=== PATIENT | male | born 1970 | race Caucasian/White ===

== ENCOUNTER 2017-07-04 21:04 | Emergency (ER) | payer SELFPAY ==
[2017-07-04 21:19] VITALS: BP 182/123
--- NOTE | 2017-07-04 21:48 | ED ---
Dizziness - HPI Summary HPI Summary: 47 yo WM h/o uncontrolled HTN and hypothyroidism presents s/p fall 2 nights ago while coming down the steps of the bar, c/o FALK dizziness. Does not recall whether he fell before or after fall, drinks about 4-5 Michelob lights per day, does not know how long he may have passed out for after the fall, has and scabbed over small laceration above left brow. - History Of Current Complaint Chief Complaint: UCCardiac Stated Complaint: FALL,NAUSOUS,LIGHT HEADED Hx Obtained From: Patient Onset/Duration: Resolved Timing: Constant Severity Initially: Moderate Severity Currently: Moderate Character: Lightheaded Aggravating Factor(s): Nothing Alleviating Factor(s): Nothing Associated Signs And Symptoms: Positive: Negative, Unsteady Gait, Other: - DAILY ETOH use - Allergies/Home Medications Allergies/Adverse Reactions: Allergies Allergy/AdvReac Type Severity Reaction Status Date / Time No Known Allergies Allergy Verified 08/11/14 21:26 Home Medications: Home Medications Levothyroxine TAB* [Synthroid TAB*] 88 mcg PO 0800 07/04/17 [History Confirmed 07/04/17] PMH/Surg Hx/FS Hx/Imm Hx Previously Healthy: Yes Endocrine/Hematology History: Reports: Hx Thyroid Disease Cardiovascular History: Reports: Hx Hypertension Infectious Disease History: No Infectious Disease History: Denies: Traveled Outside the [place] in Last 30 Days - Social History Alcohol Use: Daily Alcohol Amount: 4-5 12 oz cans of beer daily Substance Use Type: Reports: None Smoking Status (MU): Former Smoker Type: Smokeless Tobacco Amount Used/How Often: 2 cans weekly Review of Systems Constitutional: Negative Eyes: Negative ENT: Negative Cardiovascular: Negative Respiratory: Negative Gastrointestinal: Negative Musculoskeletal: Negative Skin: Negative Positive: Other - laceration above left brow Neurological: Other - s/p fall Positive: Headache, Weakness, Syncope Psychological: Normal All Other Systems Reviewed And Are Negative: Yes Physical Exam Triage Information Reviewed: Yes Vital Signs On Initial Exam: Initial Vitals Temp Pulse Resp BP Pulse Ox 36.2 C 102 18 182/123 99 07/04/17 21:09 07/04/17 21:09 07/04/17 21:09 07/04/17 21:09 07/04/17 21:09 Vital Signs Reviewed: Yes Appearance: Positive: No Pain Distress, Ill-Appearing Skin: Positive: Warm, Other - old scabbed over laceration above left brow Diagnostics - Vital Signs Vital Signs Temp Pulse Resp BP Pulse Ox 07/04/17 21:09 36.2 C 102 18 182/123 99 - Laboratory Lab Statement: Any lab studies that have been ordered have been reviewed, and results considered in the medical decision making process. Dizzy Course/Dx - Course Course Of Treatment: PT IS A DAILY ETOH DRINKER S/P FALL COMING OUT OF THE BAR 2 NIGHTS AGO, COULD NOT RECALL CIRCUMSTANCES OF FALL, FELT"UNWELL" AND CALLED HIS WHO IS ACCOMPANYING HIM (DOES NOT LIVE WITH HIM) BUT CRIED TO COME GET HIM THAT HE COULD NOT DRIVE PRIOR TO COMING TO [facility]. EKG NSR @91, NO STT CHNAGES, OFFERED CT BRAIN TO R/O BLEED, ADVISED TO GO TO ED FOR COMPLETE SYNCOPE W/U BUT REFUSED AND WHEN OFFERED CT HEAD HERE, PT FELT "TOO CLAUSTROPHOBIC" AND REFUSED AND WALKED OUT OF LEAVING HIS AND DAUGHTER IN THE ROOM. PT ELOPED @1954 - Diagnoses Differential Diagnosis/HQI/PQRI: Metabolic Abnormality, Other - DT's, uncontrolled HTN, metabolic encephalopathy, Subacute subdural hematoma Provider Diagnoses: Syncope and collapse, Fall (on) (from) other stairs and steps, initial encounter, ETOH abuse Discharge - Sign-Out/Discharge Documenting (check all that apply): Discharge/Admit/Transfer - Discharge Plan Condition: Stable Disposition: ELOPEMENT Discharge Disposition Comment: pt ELOPED Referrals: Mayur Short MD [Primary Care Provider] - - Billing Disposition and Condition Condition: STABLE Disposition: ELOP
== END 2017-07-04 22:00 | disposition home or self-care (01) ==
LOC: UCCORT 21:04
DX: R55 Syncope and collapse (principal); S01.81XA Laceration without foreign body of other part of head, initial encounter; W10.9XXA Fall (on) (from) unspecified stairs and steps, initial encounter; Y93.9 Activity, unspecified; Y92.89 Other specified places as the place of occurrence of the external cause; F10.10 Alcohol abuse, uncomplicated; E03.9 Hypothyroidism, unspecified; I10 Essential (primary) hypertension; Z87.891 Personal history of nicotine dependence
CPT/HCPCS: 93005; 99212; G0463